=== PATIENT | female | born 1990 | race Caucasian/White ===

== ENCOUNTER 2019-06-21 12:36 | Emergency (ER) | payer BC ==
[~2019-06-21] VITALS: Ht 170.2 cm; Wt 63.5 kg
[2019-06-21 12:49] VITALS: BP 129/79
[2019-06-21 12:50] VITALS: BP 129/79
--- NOTE | 2019-06-21 12:50 | NUR ---
ED Nurse Note: pt presents to ED with a sore throat and swelling x 1 week that worsened in the last couple days. pt states that it hurts to swallow and also has some nasal congestion and cough. pt has taken OTC cold medications with relief of the nasal congestion. the swelling of the throat makes it hard to take deep breaths but pt does not have any wheezing SOB or dyspnea.
[2019-06-21] MEDS ORDERED: NKM (12:52)
[2019-06-21] MEDS ORDERED: AUGMENTIN 875-1 EAC1 ORAL (13:19)
--- NOTE | 2019-06-21 13:19 | Emergency Room Report ---
History of Present Illness General Chief Complaint: Sore Throat Source: Patient Present Illness HPI 28-year-old female with no symptom past medical history here complaining of 1 week of sore throat rating the pain 10 out of 10. Reports pain in her neck however denies meningismus, stiffness of the neck, photophobia, fever and chills. Patient reports that she smokes weed on a daily basis. Denies chest pain, shortness of breath, palpitation, and other associated symptoms. Bilateral tonsils are erythematous with exudate and swelling of anterior cervical lymph nodes noted. Has not taken medication for symptom relief other than DayQuil. Denies abdominal pain, nausea vomiting and speaking in full sentences. Denies recent travel and sick contact Allergies: Coded Allergies: No Known Allergies (Unverified , 06/21/19) Patient History Past Medical History: see triage record Past Surgical History: unable to obtain Pertinent Family History: none Last Menstrual Period: 06/19/19 Now: No Immunizations: UTD Reviewed Nursing Documentation: PMH: Agreed; PSxH: Agreed Nursing Documentation-PMH Past Medical History: No Stated History Review of Systems All Other Systems: negative except mentioned in HPI Physical Exam Vital Signs Date Time Temp Pulse Resp B/P (MAP) Pulse Ox O2 Delivery O2 Flow Rate FiO2 06/21/19 12:49 99.1 95 17 129/79 (96) 99 Room Air Sp02 EP Interpretation: reviewed, normal General Appearance: no apparent distress, alert, GCS 15, non-toxic Head: normocephalic, atraumatic Eyes: bilateral eye normal inspection, bilateral eye PERRL ENT: no angioedema, TMs + canals normal, uvula midline, tonsillar swelling, pharyngeal erythema, tonsillar exudate Neck: full range of motion, supple/symm/no masses, other - Anterior cervical lymphadenopathy Respiratory: chest non-tender, lungs clear, normal breath sounds, no wheezing, speaking full sentences Cardiovascular #1: regular rate, rhythm, no edema, no murmur Gastrointestinal: normal bowel sounds, non tender, soft, non-distended, no guarding, no rebound Genitourinary: normal inspection, no CVA tenderness Musculoskeletal: back normal, gait/station normal, normal range of motion, non- tender Neurologic: alert, oriented x3, responsive, motor strength/tone normal, sensory intact, speech normal Psychiatric: judgement/insight normal, memory normal, mood/affect normal, no suicidal/homicidal ideation Skin: no rash Lymphatic: adenopathy - Anterior cervical Medical Decision Making PA Attestation All diagnoses and treatment plans were reviewed and discussed with my supervising physician Dr. Browning Diagnostic Impression: Primary Impression: Tonsillitis with exudate ER Course 28-year-old female with no symptom past medical history here complaining of 1 week of sore throat rating the pain 10 out of 10. Reports pain in her neck however denies meningismus, stiffness of the neck, photophobia, fever and chills. Patient reports that she smokes weed on a daily basis. Denies chest pain, shortness of breath, palpitation, and other associated symptoms. Bilateral tonsils are erythematous with exudate and swelling of anterior cervical lymph nodes noted. Has not taken medication for symptom relief other than DayQuil. Denies abdominal pain, nausea vomiting and speaking in full sentences. Denies recent travel and sick contact Ddx considered but are not limited to: strep pharyngitis, URI, tonsillitis, peritonsillar abscess, influneza Vital signs: are WNL, pt. is afebrile H&PE are most consistent with: Tonsillitis with exudate ORDERS: Augmentin ED INTERVENTIONS: None required at this time. DISCHARGE: At this time pt. is stable for d/c to home. Will provide printed patient care instructions, and any necessary prescriptions. Care plan and follow up instructions have been discussed with the patient prior to discharge. Take medication as noted to follow-up with her primary care provider if you continue to have swelling her primary doctor do blood work and proper ultrasound Last Vital Signs Date Time Temp Pulse Resp B/P (MAP) Pulse Ox O2 Delivery O2 Flow Rate FiO2 06/21/19 12:49 99.1 95 17 129/79 (96) 99 Room Air Disposition: HOME, SELF-CARE Condition: Stable Scripts Amoxicillin/Potassium Clav 875-125* (AUGMENTIN 875-125 TABLET*) 1 Each Tablet 1 TAB ORAL TWICE A DAY for 10 Days, #20 TAB Prov: Nico Chinchilla 06/21/19 Patient Instructions: Tonsillitis Additional Instructions: Take medication as directed to have swollen lymph nodes follow-up with your primary care provider for proper blood work as well as ultrasound of the neck. Nico Chinchilla Jun 21, 2019 13:19
--- NOTE | 2019-06-21 13:21 | NUR ---
ED Nurse Note: pt is stable and will be d/c home with instructions to f/u with PCP. pt was educated on prescribed abx and home remedies for pain and swelling. pt understands discharge instructions and will return to ED with any worsening of symptoms or other concerns.
== END 2019-06-21 13:40 | disposition home or self-care (01) ==
LOC: EMR 13:40
DX: J03.90 Acute tonsillitis, unspecified (principal); F12.10 Cannabis abuse, uncomplicated
CPT/HCPCS: 99282